=== PATIENT | female | born 1995 | race African-American/Black ===

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

== ENCOUNTER 2017-03-26 18:55 | Emergency (ER) | payer MEDICAID, OTHER ==
[2017-03-26 18:58] VITALS: BP 122/69; PULSE 85; RESP 15; TEMP 97.5; O2SAT 100
--- NOTE | 2017-03-26 19:37 | PD ---
HPI Chief Complaint: Skin Problem Time Seen by Provider: 19:33 Travel History International Travel<30 days: No Contact w/Intl Traveler<30days: No Traveled to known affect area: No History of Present Illness HPI 21-year-old female presents to emergency department for evaluation of a small blackish purple dot at the base of her right thumb on the palmar surface. Patient states that she was dancing on the floor yesterday. She is uncertain if maybe she got a splinter in her thumb. She did not feel anything at that time however she noticed a little dot today and felt she needed to come to the emergency department to have it evaluated. Denies any known trauma. No alterations in sensation or limitations in range of motion. No other symptoms' s at this time. History Social History Alcohol Use: Yes Tobacco Use: No Allergies-Medications (Allergen,Severity, Reaction): Coded Allergies: No Known Allergies (Unverified , 03/26/17) Reported Meds & Prescriptions Reported Meds & Active Scripts Active No Active Prescriptions or Reported Medications Review of Systems Except as stated in HPI: all other systems reviewed are Neg Physical Exam Narrative GENERAL: Well-nourished, well-developed female patient, ambulatory and in no acute distress SKIN: Focused skin assessment warm/dry. Is a 3 mm in diameter purpled blister appearing area at the base of the right thumb on the palmar surface. There is no fluctuance. I am unable to palpate any foreign body. The digit is neurovascularly intact. HEAD: Normocephalic. EYES: No scleral icterus. No injection or drainage. NECK: Supple, trachea midline. No JVD or lymphadenopathy. CARDIOVASCULAR: Regular rate and rhythm without murmurs, gallops, or rubs. RESPIRATORY: Breath sounds equal bilaterally. No accessory muscle use. MUSCULOSKELETAL: No cyanosis, or edema. BACK: Nontender without obvious deformity. No CVA tenderness. Data Data Last Documented VS Vital Signs Date Time Temp Pulse Resp B/P (MAP) Pulse Ox O2 Delivery O2 Flow Rate FiO2 03/26/17 18:58 97.5 85 15 122/69 (86) 100 Room Air MDM Medical Screen Exam Complete: Yes Emergency Medical Condition: No Differential Diagnosis R thumb blood blister Narrative Course 21-year-old female presents to the emergency department for evaluation of what appears to be a blood blister on the palmar surface at the base of the right thumb. There is no palpable foreign body. I'm able to palpate over the entire area without any significant pain or tenderness for the patient. I offered reassurance. I do not feel at this time it is in the patient's best interest to explore for a foreign body. I encouraged follow-up with her primary care provider. At this time there are no urgent or emergent needs for medical intervention identified. A medical screening exam was performed: At the time of evaluation the presenting medical condition was determined not to be of an emergent nature. The patient was given the option of receiving additional care, but declined. Patient was given options for additional community resources from which to obtain care. The Patient Has Been advised to seek medical attention for their presenting complaint. The patient has been advised to return to the ER at any time if an emergent condition develops. Primary Impression: Encounter for medical screening examination Scripts No Active Prescriptions or Reported Meds Condition: Catalina Hughes Mar 26, 2017 19:37
== END 2017-03-26 19:49 | disposition left against medical advice (07) ==
LOC: NEPK 18:55
DX: S60.321A Blister (nonthermal) of right thumb, initial encounter (principal); X58.XXXA Exposure to other specified factors, initial encounter; Y93.41 Activity, dancing
CPT/HCPCS: 99281

== ENCOUNTER 2017-07-27 16:22 | Emergency (ER) | payer MEDICAID, OTHER ==
[~2017-07-27] VITALS: Ht 167.6 cm; Wt 75.0 kg
[2017-07-27 16:23] VITALS: BP 114/60; PULSE 72; RESP 12; TEMP 98.6; O2SAT 99
--- NOTE | 2017-07-27 17:25 | PD ---
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 She says she has frequent yeast infections. She says she has had an odor as well as discharge for the past 3 weeks. Currently, she is using monistat 7. She says her aunt told her to get checked because it could be a bacterial infection instead of yeast. She denies abdominal pain, nausea or vomiting. She denies dysuria. She is sexually active. She says the monistat has not helped. [facility] Past Medical History Immunizations Current: Yes ?: Not : 1 : 1 Social History Alcohol Use: Yes Tobacco Use: No Substance Use: Yes (marijuana) Allergies-Medications (Allergen,Severity, Reaction): Coded Allergies: No Known Allergies (Unverified Adverse Reaction, Unknown, 07/27/17) Reported Meds & Prescriptions Reported Meds & Active Scripts Active No Active Prescriptions or Reported Medications Review of Systems Except as stated in HPI: all other systems reviewed are Neg General / Constitutional: No: Fever, Chills HENT: No: Headaches, Lightheadedness Cardiovascular: No: Chest Pain or Discomfort Respiratory: No: Shortness of Breath Gastrointestinal: No: Nausea, Vomiting, Abdominal Pain Genitourinary: Positive: Discharge, No: Dysuria Skin: No Rash, No Change in Pigmentation Neurologic: No: Weakness, Dizziness Physical Exam Narrative GENERAL: Awake and alert, in no acute distress. SKIN: Focused skin assessment warm/dry. HEAD: Atraumatic. Normocephalic. EYES: Pupils equal and round. No scleral icterus. ENT: Mucous membranes pink and moist. NECK: Trachea midline. No JVD. CARDIOVASCULAR: Regular rate and rhythm. No murmur appreciated. RESPIRATORY: No accessory muscle use. Clear to auscultation. Breath sounds equal bilaterally. GASTROINTESTINAL: Abdomen soft, non-tender, nondistended. : Exam performed in the presence of a female nurse. Exam confounded by presence of Monistat in the vagina. There is scant bleeding from the os. Thick white discharge. No CMT. No cervical lesions. MUSCULOSKELETAL: No obvious deformities. No clubbing. No cyanosis. No edema. NEUROLOGICAL: Awake and alert. No obvious cranial nerve deficits. Motor grossly within normal limits. Normal speech. PSYCHIATRIC: Appropriate mood and affect; insight and judgment normal. Data Data Last Documented VS Vital Signs Date Time Temp Pulse Resp B/P (MAP) Pulse Ox O2 Delivery O2 Flow Rate FiO2 07/27/17 16:23 98.6 72 12 114/60 (78) 99 Orders Orders Wet Prep Profile (07/27/17 17:11) Gc And Chlamydia Pcr (07/27/17 17:11) Urinalysis - C+S If Indicated (07/27/17 17:11) Ed Urine Pregnancytest Poc (07/27/17 17:11) Labs Laboratory Tests Test 07/27/17 16:45 Urine Color YELLOW Urine Turbidity CLEAR Urine pH 7.5 Urine Specific [place] 1.034 Urine Protein 30 mg/dL Urine Glucose (UA) NEG mg/dL Urine Ketones TRACE mg/dL Urine Occult Blood NEG Urine Nitrite NEG Urine Bilirubin NEG Urine Urobilinogen 2.0 MG/DL Urine Leukocyte Esterase NEG Urine RBC LESS THAN 1 /hpf Urine WBC 2 /hpf Urine Squamous Epithelial Cells 1 /hpf Urine Bacteria RARE /hpf Urine Mucus FEW /lpf Microscopic Urinalysis Comment CULT NOT INDICATED Clue Cells (Wet Prep) NS Vaginal Trichomonas (Wet Prep) NS Vaginal Yeast (Wet Prep) NS MDM Medical Decision Making Medical Screen Exam Complete: Yes Emergency Medical Condition: Yes Medical Record Reviewed: Yes Differential Diagnosis UTI vs yeast vaginitis vs BV vs gc/chlamydia Narrative Course Patient is a 21 year old female who comes in complaining of a yeast infection. She says she has had foul odor and discharge for 3 weeks. Exam is confounded by monistat in place. Swabs negative. Will give her a prescription for Diflucan. Advised to follow up with gynecology. Advised to return as needed for any worsening symptoms. 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 Return to the ED as needed for any worsening symptoms. Scripts Fluconazole (Diflucan) 150 Mg Tab 150 MG PO ONCE for Infection, #1 TAB 0 Refills Prov: Shira Olivier MD 07/27/17 Disposition: 01 DISCHARGE HOME Condition: Stable Shiar Olivier MD Jul 27, 2017 17:25
[2017-07-27 17:46] LABS: BACTERIA, URINE RARE /hpf; BILIRUBIN, URINE NEG (NEG); BLOOD, URINE NEG (NEG); GLUCOSE,URINE NEG (NEG); KETONE, URINE TRACE mg/dL (NEG); MUCUS URINE FEW /lpf (OCC); NITRITE,URINE NEG (NEG); PH, URINE 7.5 (5.0-8.5); SQUAMOUS EPITHELIAL CELL URINE 1 /hpf (0-5); URINE COLOR YELLOW (YELLW/STRAW); URINE LEUKOCYTE ESTERASE NEG (NEG)
[2017-07-27] MEDS ORDERED: DIFL150T PO (18:11)
== END 2017-07-27 18:19 | disposition home or self-care (01) ==
LOC: NEPD 16:22
DX: B37.3 Candidiasis of vulva and vagina (principal)
CPT/HCPCS: 81001; 84703; 87210; 87491; 87591; 99283

== ENCOUNTER 2017-09-04 16:42 | Emergency (ER) | payer OTHER ==
[~2017-09-04] VITALS: Ht 167.6 cm; Wt 75.0 kg
[2017-09-04 16:45] VITALS: BP 128/77; PULSE 65; RESP 18; TEMP 97.5
[2017-09-04] MEDS ORDERED: DIFL150T PO (18:35)
--- NOTE | 2017-09-04 18:36 | PD ---
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 Patient states that the symptoms started several days ago. Patient has a history of recurring yeast infection in the past. Patient was seen in emergency room last month and GC chlamydia PCR was negative. Patient was given prescription for Diflucan last month with resolution of the symptom. Patient states that she started having back to the chart itching again several days ago. Patient denies any pelvic pain abdominal pain back pain. Patient denies any fever chills. Patient denies any dysuria or frequency. Patient denies any chance of being . Patient was advised to follow up with local band tumbler at the [facility] last month. Patient has not done so. PFS Past Medical History Immunizations Current: Yes ?: Not : 1 : 1 Social History Alcohol Use: Yes Tobacco Use: No Substance Use: Yes (marijuana) Allergies-Medications (Allergen,Severity, Reaction): Coded Allergies: No Known Allergies (Unverified Adverse Reaction, Unknown, 09/04/17) Reported Meds & Prescriptions Reported Meds & Active Scripts Active Diflucan (Fluconazole) 150 Mg Tab 150 Mg PO ONCE Review of Systems General / Constitutional: No: Fever Eyes: No: Visual changes HENT: No: Headaches Cardiovascular: No: Chest Pain or Discomfort Respiratory: No: Shortness of Breath Gastrointestinal: No: Abdominal Pain Genitourinary: Positive: Discharge, No: Dysuria Musculoskeletal: No: Pain Skin: No Rash Neurologic: No: Weakness Psychiatric: No: Depression Endocrine: No: Polydipsia Hematologic/Lymphatic: No: Easy Bruising Physical Exam Narrative GENERAL: Well-nourished, well-developed patient. SKIN: Focused skin assessment warm/dry. HEAD: Normocephalic. EYES: No scleral icterus. No injection or drainage. NECK: Supple, trachea midline. No JVD or lymphadenopathy. CARDIOVASCULAR: Regular rate and rhythm without murmurs, gallops, or rubs. RESPIRATORY: Breath sounds equal bilaterally. No accessory muscle use. GASTROINTESTINAL: Abdomen soft, non-tender, nondistended. MUSCULOSKELETAL: No cyanosis, or edema. BACK: Nontender without obvious deformity. No CVA tenderness. SECURITY DIRECTOR exam: Deferred. Patient had exam last month. Data Data Last Documented VS Vital Signs Date Time Temp Pulse Resp B/P (MAP) Pulse Ox O2 Delivery O2 Flow Rate FiO2 09/04/17 16:45 97.5 65 18 128/77 (94) [facility] Medical Decision Making Medical Screen Exam Complete: Yes Emergency Medical Condition: Yes Interpretation(s) Accu-Chek blood sugar 99. Differential Diagnosis Differential diagnosis including Miladis vaginitis. Narrative Course 32-year-old female with recurrent vaginal discharge, Miladis vaginitis. Diagnosis Primary Impression: Miladis vaginitis Patient Instructions: General Instructions Additional Instructions: Diflucan as directed. Follow-up with local band tumbler. Med/Other Pt SpecificInfo: Prescription(s) given Scripts Fluconazole (Diflucan) 150 Mg Tab 150 MG PO ONCE for Infection, #1 TAB 1 Refill Prov: Alexander Mccarty MD 09/04/17 Disposition: 01 DISCHARGE HOME Condition: Stable Alexander Mccarty MD Sep 04, 2017 18:36
== END 2017-09-04 19:00 | disposition home or self-care (01) ==
LOC: NEPD 16:42
DX: B37.3 Candidiasis of vulva and vagina (principal); F12.90 Cannabis use, unspecified, uncomplicated
CPT/HCPCS: 99283